=== PATIENT | female | born 1975 | race American Indian/Alaskan Native ===

== ENCOUNTER 2017-12-18 21:59 | Emergency (ER) | payer OTHER, SELFPAY ==
[2017-12-18 22:11] VITALS: BP 102/67; PULSE 91; RESP 16; TEMP 36.5; O2SAT 97; BMI 33.7
[2017-12-18 23:21] VITALS: BP 102/67; PULSE 91; RESP 16; TEMP 36.5; O2SAT 97; BMI 33.7
--- NOTE | 2017-12-19 01:58 | ED_ITS ---
HPI - Dizziness General Chief Complaint: Dizziness Stated Complaint: Dizzy Time Seen by Provider: 12/19/17 01:44 Source: patient Mode of arrival: ambulatory Limitations: no limitations History of Present Illness HPI Narrative: This is a 42-year-old female who comes to the emergency department with complaint of dizziness. Patient states she was driving her car when she felt lightheaded like she might pass out. She did not have tunnel vision. She did not have any loss of consciousness. She just felt dizzy sort of like the room was moving. Um a resolved on its own. She did have a little bit of a headache earlier today it has resolved since arriving to be evaluated. Patient has had an upper respiratory infection with nasal congestion. She denies any sinus tenderness. She has felt that her ears were full or like she was under water. She had subjective fevers on Saturday and Saturday. She has not had any vision changes. No nausea, no vomiting or other GI issues. She did take Sudafed a couple hours prior to this event. Patient does take lisinopril for renal protection secondary to diet controlled diabetes. MD complaint: dizziness Related Data Home Medications Medication Instructions Recorded Confirmed lisinopril #0 06/08/17 Previous Rx's Medication Instructions Recorded fluticasone [Flonase Allergy 1 spray NASAL BID PRN #9.9 gram 12/19/17 Relief] loratadine [Claritin] 10 mg PO DAILY PRN #10 tab 12/19/17 Allergies Allergy/AdvReac Type Severity Reaction Status Date / Time acetaminophen [From Vicodin] AdvReac Verified 12/18/17 22:11 hydrocodone [From Vicodin] AdvReac Verified 12/18/17 22:11 No Known Allergies AdvReac Uncoded 12/18/17 22:11 Review of Systems Review of Systems All systems reviewed & are unremarkable except as noted in HPI and below Constitutional Reports fever(s) (Subjective) and Reports headache(s) (Today, now resolved) ENT Ears, Nose, Mouth, and Throat: Reports dizziness, Denies ear discharge, Reports otalgia (Feeling full), Denies facial pain, Reports headache(s) (Today, now resolved), Denies hoarseness, Reports nasal congestion, Reports nasal discharge , Denies sinus pain, Denies sinus pressure and Denies sore throat Cardiovascular Denies irregular heart rhythm, Reports lightheadedness, Denies palpitations and Denies orthopnea Respiratory Reports cough, Reports excessive phlegm production (White/yellow) and Denies wheezing Gastrointestinal Gastrointestinal: Denies abdominal pain, Denies nausea and Denies vomiting Genitourinary Denies urinary frequency and Denies dysuria Integumentary/Breasts Denies rash Neurologic Reports dizziness and Reports headache(s) (Today, now resolved) Endocrine Denies palpitations Allergic/Immunologic Denies wheezing PFSH Medical History Diabetes mellitus type 2, diet-controlled (Acute) Social History Smoking Status: Current some day smoker Exam Narrative Exam Narrative: GEN: well nourished, well appearing female, alert and oriented x 3, patient appears to be in no acute distress. HEENT: Atraumatic, pupils are equal round reactive to light, extraocular movements are intact, nares bilateral nasal congestion patient is slightly hoarse,, TMs are clear, retracted bilaterally with small amount of fluid. Throat is clear without any exudates, erythema, tonsillar enlargement or uvular deviation, mild cervical lymphadenopathy bilaterally. HEART: Regular rate and rhythm without murmur, clicks, rubs. LUNGS:Lungs clear to auscultation, no wheezes, rales, crackles, chest moves symmetrically ABD:bowel sounds normal, soft, non-tender, no guarding, rebound, rigidity, no masses noted, no hepatosplenomegaly :No CVA tenderness MSCL: Non-tender, no muscle atrophy, muscles strength 5/5 upper and lower extremities, full range of motion, normal gait. NEURO:CN 2-12 intact, sensation normal. Initial Vital Signs Initial Vital Signs: Vital Signs Temperature 97.7 F 12/18/17 22:11 Pulse Rate 91 H 12/18/17 22:11 Respiratory Rate 16 12/18/17 22:11 Blood Pressure 102/67 12/18/17 22:11 Pulse Oximetry 97 12/18/17 22:11 Course Orders Ordered: ED Orders 12/18/17 23:20 EKG-12 Lead Stat Vital Signs - 8 hr 12/18/17 22:11 12/18/17 23:21 12/19/17 02:03 Temperature 97.7 F 97.7 F Pulse Rate 91 H 91 H 72 Respiratory Rate 16 16 Blood Pressure 102/67 102/67 106/50 L Pulse Oximetry 97 97 MDM - Dizziness ECG Data Attestation: I personally reviewed and interpreted this ECG as follows: Interpretation: Sinus rhythm with a rate is 64, ID [id number], QRS 90 QTC of 419. MDM Narrative Medical decision making narrative: Patient's EKG shows no acute changes. Suspect her symptoms are more related to her recent respiratory infection, pressure issues with her ears as well as the recent Sudafed. We did discuss getting lab work. Patient referred to return time she defers any lab work. Discharge Plan Departure Patient Disposition: Home Clinical Impression: Dizziness, URI (upper respiratory infection) Discharge Date/Time: 12/19/17 02:04 Interventions: ED Discharge Assessment Last Done: 12/19/17 02:03 Instructions: DI for Dizziness-Nonvertigo Activity Restrictions/Additional Instructions: Follow-up with primary care if you do not have complete resolution of her symptoms in the next 3-5 days. Use Flonase 1-2 sprays in both nostrils twice daily until symptoms are resolved. You may take loratadine for Claritin once daily for symptoms. Return for recurrent or worsening symptoms, passing out, fevers greater than 100.4 F, new chest pain or shortness of breath, persistent vomiting, sudden severe headaches or vision changes or new weakness or numbness. Prescriptions: New fluticasone [Flonase Allergy Relief] 50 mcg/actuation spray,suspension 1 spray NASAL BID PRN (Reason: nasal congestion) Qty: 9.9 RF: 0 loratadine [Claritin] 10 mg tablet 10 mg PO DAILY PRN (Reason: allergy symptoms) Qty: 10 RF: 0 No Action lisinopril 2.5 mg Tablet Qty: 0 RF: 0
[2017-12-19 02:03] VITALS: BP 106/50; PULSE 72
== END 2017-12-19 02:04 | disposition home or self-care (01) ==
PROVIDERS: Emergency Provider Emergency Medicine
DX: J06.9 Acute upper respiratory infection, unspecified (principal); R42 Dizziness and giddiness
CPT/HCPCS: 93005; 93010; 99282; 99283

== ENCOUNTER 2018-04-10 01:59 | Emergency (ER) | payer OTHER, SELFPAY ==
[2018-04-10 02:05] VITALS: BMI 34.3
[2018-04-10] MEDS: SODIUM CHLORIDE 0.9% 1,000 ML 1000 ML IV ×2 (02:11→03:30)
--- NOTE | 2018-04-10 02:12 | DI.RAD.S_ITS ---
PROCEDURE: XR ACUTE ABDOMEN SERIES INDICATIONS: right upper Abdominal pain TECHNIQUE: One view chest and two views of the abdomen were acquired. COMPARISON: None. FINDINGS: Surgical changes and devices: None. Chest: Lungs are clear. Heart size is normal. No pleural effusions. No pneumoperitoneum. Abdomen: Scattered colonic gas are noted. There is relative paucity of small bowel gas. No suspicious calcifications. Visualized solid organ contours appear normal. Bones: No suspicious bony lesions. IMPRESSION: Nonspecific bowel gas pattern. Dictated by: Martina Kunz M.D. on 04/10/2018 at 9:03 Approved by: Martina Kunz M.D. on 04/10/2018 at 9:03
[2018-04-10 02:22] VITALS: BP 115/78; PULSE 104; RESP 18; TEMP 37.1; O2SAT 97
[2018-04-10] MEDS: PANTOPRAZOLE 40 MG VIAL IV (02:27)
[2018-04-10] MEDS: ONDANSETRON 4 MG/2 ML INJ IV (02:27)
--- NOTE | 2018-04-10 02:29 | ED.ABDPAIN ---
HPI - Abdominal Pain General Chief Complaint: Abdominal Pain Stated Complaint: stomach pain/diarrhea/vomiting Time Seen by Provider: 04/10/18 02:04 Source: patient and family Mode of arrival: ambulatory Limitations: no limitations History of Present Illness HPI narrative: 43-year-old female, nonsmoker presents with her and a chief complaint of 1 hr of nausea, vomiting and diarrhea. She developed gradually increasing right-sided abdominal pain that built to a maximum intensity at which point she became sweaty and clammy. Her symptoms greatly improved after the 1 episode of both vomiting and diarrhea. She has had 1 in only 1 episode of both vomiting and diarrhea. She denies recent travel. She denies recent antibiotics. She denies exposure to ill persons or bad food. She has had no fever or chills. She denies any blood in her stool. She is currently asymptomatic. She denies runny nose, sore throat or cough. She has had no chest pain or shortness of breath MD complaint: abdominal pain Onset (ago): hour(s) Pain Consistency: now resolved Location: R flank Severity: moderate Quality: cramping Migration to: no migration Relieving factors: bowel movement and vomiting Exacerbating factors: nothing Associated symptoms: nausea, vomiting and diarrhea Related Data Home Medications Medication Instructions Recorded Confirmed lisinopril #0 06/08/17 Previous Rx's Medication Instructions Recorded fluticasone [Flonase Allergy 1 spray NASAL BID PRN #9.9 gram 12/19/17 Relief] loratadine [Claritin] 10 mg PO DAILY PRN #10 tab 12/19/17 hyoscyamine sulfate 0.125 mg PO BID-QID PRN #10 tab 04/10/18 ondansetron 4 mg PO TID-QID PRN #10 tab 04/10/18 Allergies Allergy/AdvReac Type Severity Reaction Status Date / Time acetaminophen [From Vicodin] AdvReac Verified 12/18/17 22:11 hydrocodone [From Vicodin] AdvReac Verified 12/18/17 22:11 No Known Allergies AdvReac Uncoded 12/18/17 22:11 Review of Systems Constitutional Denies chills, Denies fever(s), Denies lethargy and Denies weakness Eyes Denies change in vision, Denies eye discharge, Denies irritation and Denies loss of vision ENT Ears, Nose, Mouth, and Throat: Denies change in voice, Denies neck pain and Denies sore throat Cardiovascular Denies chest pain, Denies irregular heart rhythm, Denies lightheadedness, Denies palpitations, Denies dyspnea, Denies dyspnea on exertion and Denies orthopnea Respiratory Denies cough, Denies dyspnea, Denies dyspnea on exertion and Denies wheezing Gastrointestinal Gastrointestinal: Reports abdominal pain, Denies change in bowel habits, Reports diarrhea, Reports nausea and Reports vomiting Genitourinary Denies hematuria, Denies flank pain, Denies urinary incontinence and Denies urinary urgency Musculoskeletal Denies neck pain Integumentary/Breasts Denies pruritus, Denies erythema, Denies rash and Denies wounds Neurologic Denies confusion, Denies loss of vision and Denies weakness Psychiatric Denies anxiety, Denies confusion, Denies depression, Denies homicidal ideation and Denies suicidal ideation Endocrine Denies palpitations Hematologic/Lymphatic Denies easy bruising Allergic/Immunologic Denies wheezing [facility] Medical History Diabetes mellitus type 2, diet-controlled (Acute) Social History Smoking Status: Current some day smoker Social History Smoking Status: Current some day smoker Exam Narrative Exam Narrative: GENERAL: 43-year-old female, resting comfortably, no obvious current distress HEAD: Atraumatic. Normocephalic. No temporal or scalp tenderness. EYES: Pupils equal round and reactive. Extraocular motions intact. No scleral icterus. No injection or drainage. ENT: Nose without bleeding, purulent drainage or septal hematoma. Throat without erythema, tonsillar hypertrophy or exudate. Uvula midline. Airway patent. NECK: Trachea midline. No JVD or lymphadenopathy. Supple, nontender, no meningeal signs. CARDIOVASCULAR: Regular rate and rhythm without murmurs, gallops, or rubs. RESPIRATORY: Clear to auscultation. Breath sounds equal bilaterally. No wheezes, rales, or rhonchi. GASTROINTESTINAL: Abdomen soft, mild tenderness right abdomen, nondistended. No hepato-splenomegaly, or palpable masses. No guarding. EXTREMITIES: No clubbing, cyanosis, or edema. No joint tenderness, effusion, or edema noted. BACK: Nontender without deformity or crepitance. No flank tenderness. NEURO: AOx3. SKIN: No rash or erythema. Initial Vital Signs Initial Vital Signs: Vital Signs Temperature 98.7 F 04/10/18 02:22 Pulse Rate 104 H 04/10/18 02:22 Respiratory Rate 18 04/10/18 02:22 Blood Pressure 115/78 04/10/18 02:22 Pulse Oximetry 97 04/10/18 02:22 Course Orders Ordered: ED Orders 04/10/18 02:12 XR acute abdomen series Stat 04/10/18 02:20 Complete Blood Count AUTO DIFF Stat Comprehensive Metabolic Panel Stat Lipase Stat 04/10/18 03:20 GI Panel (Film Array) Stat Urine Microscopic Stat Discontinued Medications Sodium Chloride (Normal Saline 0.9%) 500 mls @ 1,000 mls/hr IV BOLUS ONE Stop: 04/10/18 02:40 Last Admin: 04/10/18 03:55 Dose: Not Given Sodium Chloride (Normal Saline 0.9%) 1,000 mls @ 1,000 mls/hr IV BOLUS ONE Stop: 04/10/18 03:10 Last Infusion: 04/10/18 03:15 Dose: 1,000 mls/hr Admin: 04/10/18 02:11 Dose: 1,000 mls/hr Sodium Chloride (Normal Saline 0.9%) 1,000 mls @ 1,000 mls/hr IV BOLUS ONE Stop: 04/10/18 04:29 Last Infusion: 04/10/18 04:14 Dose: 1,000 mls/hr Admin: 04/10/18 03:30 Dose: 1,000 mls/hr Ondansetron HCl (Zofran) 4 mg IV NOW ONE Stop: 04/10/18 02:12 Last Admin: 04/10/18 02:27 Dose: 4 mg Pantoprazole Sodium (Protonix) 40 mg IV NOW ONE Stop: 04/10/18 02:12 Last Admin: 04/10/18 02:27 Dose: 40 mg Reevaluation(s) Reevaluation #1: Patient just produced a liquidy stool and feels tremendous relief in her abdominal discomfort, this is now the 2nd time the bowel movement has improved her symptoms tremendously. Time: 03:14 Vital Signs - 8 hr 04/10/18 02:22 04/10/18 04:19 Temperature 98.7 F Pulse Rate 104 H 83 Respiratory Rate 18 15 Blood Pressure 114/70 Blood Pressure [Right Wrist] 115/78 Pulse Oximetry 97 97 MDM - Abdominal Pain Medical Records Attestation: I reviewed the patient's medical records. Lab Data Attestation: I reviewed the patient's lab results. Result diagrams: 04/10/18 02:20 04/10/18 02:20 Lab Results 04/10/18 04/10/18 04/10/18 Range/Units 02:20 02:20 03:20 WBC 16.6 H (4.5-11.0) X10^3/uL RBC 5.37 H (4.0-5.2) X10^6/uL Hgb 15.4 (12.0-16.0) g/dL Hct 44.5 (36-46) % MCV 82.9 (80-100) fL MCH 28.6 (26-34) PG MCHC 34.6 (30-36) % RDW 13.3 (11.6-14.8) % Plt Count 392 (150-400) X10^3/uL Neut % (Auto) 63.4 (50-75) % Lymph % (Auto) 27.8 (25-40) % [place] % (Auto) 7.1 (3-14) % Eos % (Auto) 1.2 L (2-4) % Baso % (Auto) 0.5 (0-2) % Neut # (Auto) 73934 H (1411-0747) /uL Lymph # (Auto) 4600 H (4820-3712) /uL [place] # (Auto) 1200 H (0-900) /uL Eos # (Auto) 200 (0-450) /uL Baso # (Auto) 100 (0-100) /uL Sodium 137 (137-145) mmol/L Potassium 3.9 (3.4-5.1) mmol/L Chloride 101 (98-107) mmol/L Carbon Dioxide 24 (22-32) mmol/L BUN 15 (7-17) mg/dL Creatinine 0.70 (0.52-1.04) mg/dL Estimated GFR > 60.0 (>60) mL/min BUN/Creatinine Ratio 21.4 (6-22) Glucose 180 H (70-100) mg/dL Calcium 9.3 (8.4-10.2) mg/dL Total Bilirubin 0.3 (0.2-1.3) mg/dL AST 22 (14-36) IU/L ALT 26 (9-52) IU/L Alkaline Phosphatase 102 (38-126) U/L Total Protein 8.0 (6.3-8.2) g/dL Albumin 4.6 (3.5-5.0) g/dL Globulin 3.4 (1.7-4.1) g/dL Albumin/Globulin Ratio 1.4 (1.0-2.8) Lipase 200 (23-300) U/L Urine RBC 0-1/hpf (0-5/HPF) Urine WBC None seen (0-5/HPF) Ur Squamous Epith Cells 1-5 /hpf Calcium Oxalate Crystal Few H (None) Urine Bacteria Few (2-10) H (None) Urine Mucus 1+ H (Negative) Ur Culture Indicated? Cult not indicated Point of care testing: Urine Dip Bedside Urine Glucose 250 mg/dl Bedside Urine Bilirubin - Negative Bedside Urine Ketone - Negative Urine Specific [place] 1.030 Bedside Urine Occult Blood +/- Bedside Urine pH 6.0 Bedside Urine Protein +/- 15 Bedside Urine Urobilinogen - Negative Bedside Urine Nitrite - Negative Bedside Urine Leukocytes - Negative Esterase Imaging Data Abdominal x-ray: My impression: Nonspecific bowel gas pattern, nonobstructive MDM Narrative Medical decision making narrative: Multiple etiologies for patient's symptoms considered including: [Appendicitis versus kidney stone versus enteritis vs gastroenteritis versus bowel obstruction versus other] Patient's symptoms improved or duration of stay with above-stated therapies. Findings and discharge diagnosis discussed with patient/family followed by verbalization of understanding Return precautions discussed with patient/family whom verbalize understanding. Discharge Plan Departure Patient Disposition: Home Clinical Impression: Abdominal pain, Enteritis Discharge Date/Time: 04/10/18 04:17 Interventions: ED Discharge Assessment Last Done: 04/10/18 04:19 Instructions: DI for Viral Gastroenteritis -- Adult Activity Restrictions/Additional Instructions: 1. Drink plenty of fluids with frequent small sips. 2. For the next 24 hours a clear liquid diet is advised. After that please employ a brat diet which would include bananas, rice, apples, toast. 3. Please take medications as directed. 4. Please follow-up with your doctor in the next 1-2 days. Call the office for an appointment. 5. Please return to the emergency Department for any worsening or persistent symptoms, such as increasing pain or fever. Prescriptions: New ondansetron 4 mg tablet,disintegrating 4 mg PO TID-QID PRN (Reason: nausea and vomiting) Qty: 10 RF: 0 hyoscyamine sulfate 0.125 mg tablet 0.125 mg PO BID-QID PRN (Reason: dyspepsia) Qty: 10 RF: 0 No Action lisinopril 2.5 mg Tablet Qty: 0 RF: 0 fluticasone [Flonase Allergy Relief] 50 mcg/actuation spray,suspension 1 spray NASAL BID PRN (Reason: nasal congestion) Qty: 9.9 RF: 0 loratadine [Claritin] 10 mg tablet 10 mg PO DAILY PRN (Reason: allergy symptoms) Qty: 10 RF: 0
[2018-04-10 02:36] LABS: Add Manual Diff / Slide Review NO; Basophils Absolute Auto 100 /uL (0-100); Basophils Percent Auto 0.5 % (0-2); Eosinophils Absolute Auto 200 /uL (0-450); Eosinophils Percent Auto 1.2 % (2-4); Hematocrit 44.5 % (36-46); Hemoglobin 15.4 g/dL (12.0-16.0); Lymphocytes Absolute Auto 4600 /uL (1100-4500); Lymphocytes Percent Auto 27.8 % (25-40); Mean Corpuscular HGB Conc 34.6 % (30-36); Mean Corpuscular Hemoglobin 28.6 PG (26-34); Mean Corpuscular Volume 82.9 fL (80-100); Monocytes Absolute Auto 1200 /uL (0-900); Monocytes Percent Auto 7.1 % (3-14); Neutrophils Absolute Auto 10500 /uL (1500-7000); Neutrophils Percent Auto 63.4 % (50-75); Platelet Count 392 X10^3/uL (150-400); Red Blood Cell Count 5.37 X10^6/uL (4.0-5.2); Red Cell Distribution Width 13.3 % (11.6-14.8); White Blood Cell Count 16.6 X10^3/uL (4.5-11.0)
[2018-04-10 02:42] LABS: Alanine Aminotransferase 26 IU/L (9-52); Albumin 4.6 g/dL (3.5-5.0); Albumin Globulin Ratio 1.4 (1.0-2.8); Alkaline Phosphatase 102 U/L (38-126); Aspartate Aminotransferase 22 IU/L (14-36); BUN Creatinine Ratio 21.4 (6-22); Bilirubin Total 0.3 mg/dL (0.2-1.3); Blood Urea Nitrogen 15 mg/dL (7-17); Calcium 9.3 mg/dL (8.4-10.2); Carbon Dioxide 24 mmol/L (22-32); Chloride 101 mmol/L (98-107); Estimated Glomerular Filt Rate > 60.0 mL/min (>60); Globulin 3.4 g/dL (1.7-4.1); Glucose 180 mg/dL (70-100); HEMOLYSIS < 15 (0-50); Lipase 200 U/L (23-300); Potassium 3.9 mmol/L (3.4-5.1); Sodium 137 mmol/L (137-145)
[2018-04-10 03:52] LABS: WBC Urine None Seen (0-5/HPF)
[2018-04-10 03:53] LABS: RBC Urine 0-1/HPF (0-5/HPF); Squamous Epithelial Cell Urine 1-5 /HPF
[2018-04-10 03:54] LABS: Bacteria Urine Few (2-10); Calcium Oxalate Crystals Urine Few; Culture Indicated Urine Cult Not Indicated; Mucus Urine 1+ (Negative)
[2018-04-10 04:19] VITALS: BP 114/70; PULSE 83; RESP 15; O2SAT 97
[2018-04-10 04:47] LABS: Adenovirus F 40/41 Not Detected (Not Detect); Astrovirus Not Detected (Not Detect); Campylobacter Not Detected (Not Detect); Clostridium difficile toxin AB Not Detected (Not Detect); Cryptosporidium Not Detected (Not Detect); Cyclospora cayetanensis Not Detected (Not Detect); Entamoeba histolytica Not Detected (Not Detect); Enteroaggregative E.coli Not Detected (Not Detect); Enteropathogenic E.coli Not Detected (Not Detect); Enterotoxigenic E.coli It/st Not Detected (Not Detect); Giardia lamblia Not Detected (Not Detect); Norovirus GI/GII Not Detected (Not Detect); Plesiomonsa shigelloides Not Detected (Not Detect); Rotavirus A Not Detected (Not Detect); Salmonella Not Detected (Not Detect); Shiga-like toxin-prod E.coli Not Detected (Not Detect); Shigella/Enteroinvasive E.coli Not Detected (Not Detect); Vibrio Not Detected (Not Detect); Vibrio cholerae Not Detected (Not Detect); Yersinia enterocolitica Not Detected (Not Detect)
== END 2018-04-10 04:17 | disposition home or self-care (01) ==
PROVIDERS: Emergency Provider Emergency Medicine
DX: K52.9 Noninfective gastroenteritis and colitis, unspecified (principal)
CPT/HCPCS: 36415; 36591; 74022; 80053; 81003; 81015; 83690; 85025; 87507; 96361; 96374; 96375; 99283; 99284; C9113; J2405

== ENCOUNTER → 2018-08-24 13:15 | Outpatient (CLI) | payer OTHER, SELFPAY | PROVIDERS: Visit Provider Physician Assistant | DX: N39.0 Urinary tract infection, site not specified (principal); R31.9 Hematuria, unspecified | CPT/HCPCS: 87077; 87086; 87186 ==

== ENCOUNTER 2019-04-30 20:20 | Emergency (ER) | payer OTHER, SELFPAY ==
[2019-04-30 20:29] VITALS: BP 114/56; PULSE 80; RESP 18; TEMP 36.6; O2SAT 100
--- NOTE | 2019-04-30 20:48 | ED_ITS ---
HPI - General Adult General Chief complaint: Upper Respiratory Symptoms Stated complaint: sore throat, cold symptoms Time Seen by Provider: 04/30/19 20:40 Source: patient Mode of arrival: Ambulatory Limitations: no limitations History of Present Illness HPI narrative: Otherwise healthy 44-year-old female here for evaluation of several weeks of a cough and nasal congestion. She has been taking her allergy medications. She is here with her son who she thinks and strep throat. She decided to get checked out to make sure that she does not have bronchitis. Related Data Home Medications Medication Instructions Recorded Confirmed lisinopril #0 06/08/17 08/24/18 cetirizine 10 mg capsule 10 mg PO DAILY 08/24/18 08/24/18 Previous Rx's Medication Instructions Recorded fluticasone propionate [Flonase 1 spray NASAL BID PRN #9.9 gram 12/19/17 Allergy Relief] nitrofurantoin 100 mg PO BID #14 cap 08/24/18 monohydrate/macrocrystals 100 mg capsule prednisone 40 mg PO DAILY 4 Days #8 tab 04/30/19 Allergies Allergy/AdvReac Type Severity Reaction Status Date / Time acetaminophen [From Vicodin] AdvReac Verified 08/24/18 09:24 hydrocodone [From Vicodin] AdvReac Verified 08/24/18 09:24 Review of Systems Constitutional Constitutional: Denies fever(s) ENT Ears, Nose, Mouth, and Throat: Denies neck pain and Reports sinus pressure Respiratory Respiratory: Reports cough Musculoskeletal Musculoskeletal: Denies arthralgias and Denies neck pain Integumentary/Breasts Skin/Breast: Denies rash Patient History Medical History Diabetes mellitus type 2, diet-controlled (Acute) Social History Smoking Status: Current every day smoker Smoking Status: Current every day smoker alcohol intake frequency: holidays/special occasions only Substance Use Type: does not use Exam Initial Vital Signs Initial Vital Signs: Vital Signs Temperature 98 F 04/30/19 20:29 Pulse Rate 80 04/30/19 20:29 Respiratory Rate 18 04/30/19 20:29 Blood Pressure 114/56 L 04/30/19 20:29 Pulse Oximetry 100 04/30/19 20:29 Const General: cooperative and comfortable Limitations: mental status not altered HENCA Head: normal to inspection and normocephalic Ears: TM's normal bilaterally Mouth: oral mucosae normal Resp Effort & Inspection: normal respiratory effort Auscultation: clear to auscultation bilaterally Cardio Rate: regular rate Rhythm: regular rhythm Skin Lesions: no lesions Rashes: no rashes Neuro General: alert and awake Cognition: normal cognition Speech: speech normal Extrem General: capillary refill normal Psych Appearance: grossly normal and well kempt Course Orders Ordered: Discontinued Medications Prednisone (Deltasone) 20 mg PO NOW ONE Stop: 04/30/19 21:00 Last Admin: 04/30/19 21:19 Dose: 20 mg Documented by: RILEY Vital Signs Vital signs: Vital Signs - 8 hr 04/30/19 20:29 04/30/19 21:45 Temperature 98 F Pulse Rate 80 87 Respiratory Rate 18 15 Blood Pressure 114/56 L 128/61 Pulse Oximetry 100 100 Medical Decision Making MDM Narrative Medical decision making narrative: Normal exam, no indication for antibiotics, low suspicion for strep throat, will send her home on a short course of steroids. She is going to continue to take her allergy medications. Will follow up with her primary provider. She was given return precautions and follow-up instructions. She expressed understanding and agreement Discharge Plan Departure Patient Disposition: Home Clinical Impression: Upper respiratory infection Qualifiers: URI type: unspecified viral URI Qualified Code(s): J06.9 - Acute upper respiratory infection, unspecified Discharge Date/Time: 04/30/19 21:45 Instructions: DI for Viral Upper Respiratory Infection -- Adult Activity Restrictions/Additional Instructions: Recommend that you continue with her allergy medication. You can had Flonase to the Zyrtec you are currently taking. Take the steroids as directed. Contact your primary provider for follow-up. Your prescription was electronically transmitted to [facility]. Prescriptions: New prednisone 20 mg tablet 40 mg PO DAILY 4 Days Qty: 8 RF: 0 No Action Zyrtec 10 mg capsule 10 mg PO DAILY RF: 0 nitrofurantoin monohyd/m-cryst [Macrobid] 100 mg capsule 100 mg PO BID Qty: 14 RF: 0 lisinopril 2.5 mg Tablet Qty: 0 RF: 0 fluticasone propionate [Flonase Allergy Relief] 50 mcg/actuation spray,suspension 1 spray NASAL BID PRN (Reason: nasal congestion) Qty: 9.9 RF: 0 Referrals: Estefany Carroll MD [Primary Care Provider] -
[2019-04-30] MEDS: predniSONE 20 MG TABLET PO (21:19)
[2019-04-30 21:45] VITALS: BP 128/61; PULSE 87; RESP 15; O2SAT 100
== END 2019-04-30 21:45 | disposition home or self-care (01) ==
PROVIDERS: Emergency Provider Emergency Medicine; PCP Family Medicine
DX: J06.9 Acute upper respiratory infection, unspecified (principal)
CPT/HCPCS: 99283

== ENCOUNTER 2019-09-06 01:21 | Emergency (ER) | payer OTHER, SELFPAY ==
[2019-09-06 01:39] VITALS: BP 134/62; PULSE 86; RESP 20; TEMP 36.3; O2SAT 100; BMI 33.5
[2019-09-06] MEDS: MECLIZINE HCL 12.5 MG TABLET 25 MG PO (01:55)
--- NOTE | 2019-09-06 02:04 | ED.DIZZY ---
HPI - Dizziness General Chief Complaint: Dizziness Stated Complaint: dizzy spells 5 days Time Seen by Provider: 09/06/19 01:25 Source: patient Mode of arrival: Ambulatory Limitations: no limitations History of Present Illness HPI Narrative: Daily smoker with history of hypertension presents with a chief complaint of. She states that she feels as if the room is spinning, particularly when she turns her head or sits up from laying down. She admits to some runny nose and sneezing and has had a history of seasonal allergies. She denies any fever chills. She denies blurred or double vision. She denies any focal neurologic findings such as numbness, tingling or weakness. She denies any recent injuries. She saw her PCP a few days ago and was told that she had some fluid behind her ear and was given a nasal spray, decongestant and encouraged to take antihistamines twice daily. She may feel little bit better but was worried something else might be going on. MD complaint: dizziness Onset (ago): day(s) Timing: sudden onset Description: sense of movement and room spinning History of similar episodes: Yes History of trauma: No Severity: moderate Relieving factors: remaining still Exacerbating factors: movement and position Associated symptoms: other Related Data Home Medications Medication Instructions Recorded Confirmed cetirizine 10 mg PO DAILY 09/06/19 09/06/19 losartan 50 mg PO DAILY 09/06/19 09/06/19 pseudoephedrine HCl [Sudafed 12 120 mg PO Q12H 09/06/19 09/06/19 Hour] simvastatin 10 mg PO DAILY 09/06/19 09/06/19 Previous Rx's Medication Instructions Recorded fluticasone propionate [Flonase 1 spray NASAL BID PRN #9.9 gram 12/19/17 Allergy Relief] meclizine 25 mg PO TID PRN #10 tab 09/06/19 Allergies Allergy/AdvReac Type Severity Reaction Status Date / Time acetaminophen [From Vicodin] AdvReac Verified 08/24/18 09:24 amoxicillin [From Augmentin] AdvReac Verified 09/06/19 01:39 clavulanic acid AdvReac Verified 09/06/19 01:39 [From Augmentin] hydrocodone [From Vicodin] AdvReac Verified 08/24/18 09:24 Review of Systems Constitutional Constitutional: Denies chills, Denies fatigue, Denies fever(s), Denies frequent falls, Denies lethargy and Denies weakness Eyes Eyes: Denies change in vision, Denies eye discharge, Denies irritation and Denies loss of vision ENT Ears, Nose, Mouth, and Throat: Denies change in voice, Reports dizziness, Reports nasal congestion, Denies neck pain, Denies sore throat and Denies throat swelling Comments: Left ear pain Cardiovascular Cardiovascular: Denies chest pain, Denies irregular heart rhythm, Denies lightheadedness, Denies palpitations, Denies dyspnea, Denies dyspnea on exertion and Denies orthopnea Respiratory Respiratory: Denies cough, Denies dyspnea, Denies dyspnea on exertion and Denies wheezing Gastrointestinal Gastrointestinal: Denies abdominal pain, Denies change in bowel habits, Denies diarrhea, Denies nausea and Denies vomiting Musculoskeletal Musculoskeletal: Denies neck pain and Denies numbness Integumentary/Breasts Skin/Breast: Denies pruritus, Denies erythema, Denies rash and Denies wounds Neurologic Neurologic: Denies behavioral changes, Denies confusion, Reports dizziness, Denies frequent falls, Denies loss of vision, Denies numbness and Denies weakness Psychiatric Psychiatric: Denies anxiety, Denies behavioral changes, Denies confusion, Denies depression, Denies homicidal ideation and Denies suicidal ideation Endocrine Endocrine: Denies fatigue, Denies flushing and Denies palpitations Hematologic/Lymphatic Hematologic/Lymphatic: Denies easy bruising Allergic/Immunologic Allergic/Immunologic: Denies urticaria, Denies throat swelling and Denies wheezing Patient History Medical History Diabetes mellitus type 2, diet-controlled (Acute) Social History Smoking Status: Current every day smoker Smoking Status: Current every day smoker alcohol intake frequency: holidays/special occasions only Substance Use Type: does not use Exam Narrative Exam Narrative: GENERAL: [44] year old patient appears stated age. Well-nourished, well-developed patient, in mild distress. HEAD: Atraumatic. Normocephalic. EYES: Pupils equal round and reactive. Extraocular motions intact. No scleral icterus. No injection or drainage. ENT: Nose without bleeding, purulent drainage. Clear postnasal drip, no pharyngeal erythema or tender lymphadenopathy. Clear effusion behind left tympanic membrane without opacification, loss of landmarks, bulging or erythema. NECK: Trachea midline. Non tender CARDIOVASCULAR: Regular rate and rhythm without murmurs, gallops, or rubs. RESPIRATORY: Clear to auscultation. Breath sounds equal bilaterally. No wheezes, rales, or rhonchi. GASTROINTESTINAL: Abdomen soft, non-tender, nondistended. EXTREMITIES: No edema or joint tenderness. BACK: Nontender without deformity or crepitance. No flank tenderness. NEURO: AOx3. SKIN: No rash or erythema of visible areas Initial Vital Signs Initial Vital Signs: Vital Signs Temperature 97.3 F L 09/06/19 01:39 Pulse Rate 86 09/06/19 01:39 Respiratory Rate 20 09/06/19 01:39 Blood Pressure 134/62 09/06/19 01:39 Pulse Oximetry 100 09/06/19 01:39 Course Course Course Narrative: Patient has mild nystagmus when turning her head left, fast which to the left. Symptoms improved after 30-60 seconds. The symptoms are reproducible and in the absence of any focal neurologic findings. Stroke, electrolyte abnormality, cardiac arrhythmia considered but thought less likely given history and physical exam. Orders Ordered: ED Orders 09/06/19 01:31 EKG-12 Lead Routine 09/06/19 02:10 Complete Blood Count AUTO DIFF Stat Comprehensive Metabolic Panel Stat Troponin & CK Cardiac Panel Stat Discontinued Medications Meclizine HCl (Antivert) 25 mg PO NOW ONE Stop: 09/06/19 01:38 Last Admin: 09/06/19 01:55 Dose: 25 mg Documented by: JACKLYN Vital Signs Vital signs: Vital Signs - 8 hr 09/06/19 01:39 09/06/19 03:09 Temperature 97.3 F L Pulse Rate 86 81 Respiratory Rate 20 18 Blood Pressure 134/62 Blood Pressure [Right Arm] 120/58 L Pulse Oximetry 100 98 MDM - Dizziness Lab Data Result diagrams: 09/06/19 02:10 09/06/19 02:10 Labs: Lab Results 09/06/19 09/06/19 Range/Units 02:10 02:10 WBC 11.8 H (4.5-11.0) X10^3/uL RBC 4.72 (4.0-5.2) X10^6/uL Hgb 13.8 (12.0-16.0) g/dL Hct 39.8 (36-46) % MCV 84.4 (80-100) fL MCH 29.3 (26-34) PG MCHC 34.8 (30-36) % RDW 12.6 (11.6-14.8) % Plt Count 361 (150-400) X10^3/uL Neut % (Auto) 51.2 (50-75) % Lymph % (Auto) 39.2 (25-40) % Becker % (Auto) 6.7 (3-14) % Eos % (Auto) 2.0 (2-4) % Baso % (Auto) 0.9 (0-2) % Neut # (Auto) 6000 (9839-7019) /uL Lymph # (Auto) 4600 H (1981-9321) /uL Becker # (Auto) 800 (0-900) /uL Eos # (Auto) 200 (0-450) /uL Baso # (Auto) 100 (0-100) /uL Sodium 135 L (137-145) mmol/L Potassium 4.3 (3.4-5.1) mmol/L Chloride 104 (98-107) mmol/L Carbon Dioxide 23 (22-32) mmol/L BUN 16 (7-17) mg/dL Creatinine 0.82 (0.52-1.04) mg/dL Estimated GFR > 60.0 (>60) mL/min BUN/Creatinine Ratio 19.5 (6-22) Glucose 228 H (70-100) mg/dL Calcium 9.6 (8.4-10.2) mg/dL Total Bilirubin 0.2 (0.2-1.3) mg/dL AST 24 (14-36) IU/L ALT 17 (<35) IU/L Alkaline Phosphatase 111 (38-126) U/L Total Creatine Kinase 147 H (30-135) U/L CK-MB (CK-2) 1.85 (<2.37) ng/mL CK-MB (CK-2) Rel Index 1.3 L (1.5-5.0) % Troponin I < 0.012 (0.01-0.034) ng/mL Total Protein 6.9 (6.3-8.2) g/dL Albumin 4.0 (3.5-5.0) g/dL Globulin 2.9 (1.7-4.1) g/dL Albumin/Globulin Ratio 1.4 (1.0-2.8) ECG Data Attestation: I personally reviewed and interpreted this ECG as follows: Prior ECG tracings: not available for review Interpretation: EKG is normal sinus rhythm rate [80 ] and free of any signs of ischemia or ectopy. No ST segmental elevation or depression. No T wave inversions Discharge Plan Departure Patient Disposition: Home Clinical Impression: Dizziness Discharge Date/Time: 09/06/19 03:16 Instructions: DI for Vertigo Activity Restrictions/Additional Instructions: *You have been diagnosed with [dizziness, likely due to fluid behind your ear as a consequence of seasonal allergies] *What to do: *Take medications as directed: You may consider either increasing your cetirizine to twice daily or you may take the Meclizine INSTEAD. It has been sent to [facility] *Follow up with your primary care provider in 2-3 days, call for an appointment. Let them know you were seen in the Emergency Department and that we ask that you be seen in follow up *Return to ER if you should have any new, worsening or concerning symptoms Prescriptions: New meclizine 25 mg tablet 25 mg PO TID PRN (Reason: dizziness) Qty: 10 RF: 0 No Action fluticasone propionate [Flonase Allergy Relief] 50 mcg/actuation spray,suspension 1 spray NASAL BID PRN (Reason: nasal congestion) Qty: 9.9 RF: 0 losartan 50 mg Tablet 50 mg PO DAILY RF: 0 cetirizine 10 mg tablet 10 mg PO DAILY RF: 0 simvastatin 10 mg tablet 10 mg PO DAILY RF: 0 pseudoephedrine HCl [Sudafed 12 Hour] 120 mg Tablet Extended Release 120 mg PO Q12H RF: 0 Referrals: Estefany Carroll MD [Primary Care Provider] -
[2019-09-06 02:30] LABS: Add Manual Diff / Slide Review NO; Basophils Absolute Auto 100 /uL (0-100); Basophils Percent Auto 0.9 % (0-2); Eosinophils Absolute Auto 200 /uL (0-450); Hematocrit 39.8 % (36-46); Hemoglobin 13.8 g/dL (12.0-16.0); Lymphocytes Absolute Auto 4600 /uL (1100-4500); Lymphocytes Percent Auto 39.2 % (25-40); Mean Corpuscular HGB Conc 34.8 % (30-36); Mean Corpuscular Hemoglobin 29.3 PG (26-34); Mean Corpuscular Volume 84.4 fL (80-100); Monocytes Absolute Auto 800 /uL (0-900); Monocytes Percent Auto 6.7 % (3-14); Neutrophils Absolute Auto 6000 /uL (1500-7000); Neutrophils Percent Auto 51.2 % (50-75); Platelet Count 361 X10^3/uL (150-400); Red Blood Cell Count 4.72 X10^6/uL (4.0-5.2); Red Cell Distribution Width 12.6 % (11.6-14.8); White Blood Cell Count 11.8 X10^3/uL (4.5-11.0)
[2019-09-06 02:39] LABS: Alanine Aminotransferase 17 IU/L (<35); Albumin Globulin Ratio 1.4 (1.0-2.8); Alkaline Phosphatase 111 U/L (38-126); Aspartate Aminotransferase 24 IU/L (14-36); BUN Creatinine Ratio 19.5 (6-22); Bilirubin Total 0.2 mg/dL (0.2-1.3); Blood Urea Nitrogen 16 mg/dL (7-17); Calcium 9.6 mg/dL (8.4-10.2); Carbon Dioxide 23 mmol/L (22-32); Chloride 104 mmol/L (98-107); Creatine Kinase 147 U/L (30-135); Estimated Glomerular Filt Rate > 60.0 mL/min (>60); Globulin 2.9 g/dL (1.7-4.1); Glucose 228 mg/dL (70-100); Potassium 4.3 mmol/L (3.4-5.1); Sodium 135 mmol/L (137-145); Total Protein 6.9 g/dL (6.3-8.2)
[2019-09-06 02:51] LABS: Troponin I < 0.012 ng/mL (0.01-0.034)
[2019-09-06 02:54] LABS: HEMOLYSIS 26 (0-50)
[2019-09-06 03:00] LABS: CKMB % Relative Index 1.3 % (1.5-5.0); Creatine Kinase MB 1.85 ng/mL (<2.37)
[2019-09-06 03:09] VITALS: BP 120/58; PULSE 81; RESP 18; O2SAT 98
== END 2019-09-06 03:16 | disposition home or self-care (01) ==
PROVIDERS: Emergency Provider Emergency Medicine; PCP Family Medicine
DX: R42 Dizziness and giddiness (principal); I10 Essential (primary) hypertension
CPT/HCPCS: 36415; 80053; 82550; 82553; 84484; 85025; 93005; 99283; 99284

== ENCOUNTER 2020-03-08 20:31 | Emergency (ER) | payer OTHER, SELFPAY ==
[2020-03-08 20:35] VITALS: BP 121/61; PULSE 102; RESP 15; TEMP 37; O2SAT 100; BMI 34.3
[2020-03-08 21:03] LABS: Appearance Urine UA CLOUDY; Bilirubin Urine UA NEGATIVE (NEGATIVE); Color Urine UA YELLOW; Glucose Urine UA 2+ g/dL (Negative); Ketones Urine UA NEGATIVE (NEGATIVE); Leukocyte Esterase Urine UA 2+ (NEGATIVE); Nitrite Urine UA POSITIVE (Negative); Occult Blood Urine UA 3+ (Negative); Protein Urine UA 1+ (Negative); Urobilinogen Urine UA 0.2 E.U./dL (0.2)
[2020-03-08 21:13] LABS: Bacteria Urine Many (>30); Culture Indicated Urine Specimen Cultured; RBC Urine 30-100/HPF (0-5/HPF); WBC Urine 30-100/HPF (0-5/HPF)
--- NOTE | 2020-03-08 21:16 | ED.GENADULT ---
HPI - General Adult General Chief complaint: Urogenital-Female Stated complaint: low back pain, thinks bladder infection Time Seen by Provider: 03/08/20 21:12 Source: patient Mode of arrival: Ambulatory Limitations: no limitations History of Present Illness HPI narrative: Patient is a 45-year-old male here for evaluation of dysuria to include frequency and also right-sided flank pain. She states that her symptoms started within the past 24 hours. She has had urinary tract infections in the past. Has not tried anything for her symptoms prior to arrival. Related Data Home Medications Medication Instructions Recorded Confirmed cetirizine 10 mg PO DAILY 09/06/19 09/06/19 losartan 50 mg PO DAILY 09/06/19 09/06/19 pseudoephedrine HCl [Sudafed 12 120 mg PO Q12H 09/06/19 09/06/19 Hour] simvastatin 10 mg PO DAILY 09/06/19 09/06/19 Previous Rx's Medication Instructions Recorded fluticasone propionate [Flonase 1 spray NASAL BID PRN #9.9 gram 12/19/17 Allergy Relief] meclizine 25 mg PO TID PRN #10 tab 09/06/19 phenazopyridine [Pyridium] 100 mg PO TID PRN #6 tab 03/08/20 sulfamethoxazole-trimethoprim 1 tab PO Q12H 14 Days #28 tab 03/08/20 [Bactrim DS] Allergies Allergy/AdvReac Type Severity Reaction Status Date / Time acetaminophen [From Vicodin] AdvReac Verified 08/24/18 09:24 amoxicillin [From Augmentin] AdvReac Verified 09/06/19 01:39 clavulanic acid AdvReac Verified 09/06/19 01:39 [From Augmentin] hydrocodone [From Vicodin] AdvReac Verified 08/24/18 09:24 Review of Systems Constitutional Constitutional: Denies fever(s) and Denies headache(s) ENT Ears, Nose, Mouth, and Throat: Denies headache(s) Cardiovascular Cardiovascular: Denies chest pain and Denies dyspnea Respiratory Respiratory: Denies dyspnea Gastrointestinal Gastrointestinal: Denies abdominal pain, Denies change in bowel habits, Denies nausea and Denies vomiting Genitourinary Genitourinary: Reports dysuria and Reports urinary hesitancy Genitourinary: Reports dysuria and Reports urinary hesitancy Comments: Right flank pain Musculoskeletal Musculoskeletal: Denies arthralgias and Denies myalgias Integumentary/Breasts Skin/Breast: Denies rash Neurologic Neurologic: Denies behavioral changes, Denies confusion and Denies headache(s) Psychiatric Psychiatric: Denies behavioral changes and Denies confusion Hematologic/Lymphatic Hematologic/Lymphatic: Denies easy bleeding and Denies easy bruising Patient History Medical History Diabetes mellitus type 2, diet-controlled Social History Smoking Status: Current every day smoker Smoking Status: Current every day smoker alcohol intake frequency: holidays/special occasions only Substance Use Type: does not use and marijuana Exam Initial Vital Signs Initial Vital Signs: Vital Signs Temperature 98.6 F 03/08/20 20:35 Pulse Rate 102 H 03/08/20 20:35 Respiratory Rate 15 03/08/20 20:35 Blood Pressure 121/61 03/08/20 20:35 Pulse Oximetry 100 03/08/20 20:35 Const General: cooperative and comfortable Limitations: mental status not altered HENMT Head: normal to inspection and normocephalic Resp Effort & Inspection: normal respiratory effort Auscultation: clear to auscultation bilaterally Cardio Rate: tachycardic Rhythm: regular rhythm Back/Spine/Pelvis Back: CVA tenderness right Skin Lesions: no lesions Rashes: no rashes Neuro General: patient alert, patient awake and patient oriented x3 Cognition: normal cognition Speech: speech normal Extrem General: normal to inspection and capillary refill normal Psych Appearance: grossly normal and well kempt Course Orders Ordered: ED Orders 03/08/20 20:59 Urinalysis and Microscopic Stat Urine Culture Stat Discontinued Medications Ondansetron HCl (Ondansetron 4 Mg Odt Prepack) 1 bottle MISC SEEINSTR ONE Stop: 03/08/20 21:18 Last Admin: 03/08/20 21:39 Dose: 1 bottle Documented by: FAIZA Phenazopyridine HCl (Phenazopyridine 100 Mg Tablet) 100 mg PO NOW ONE Stop: 03/08/20 21:18 Last Admin: 03/08/20 21:39 Dose: 100 mg Documented by: FAIZA Trimethoprim/Sulfamethoxazole (Trimeth/Sulfa 160/800 (Ds) Tablet) 1 tab PO NOW ONE Stop: 03/08/20 21:18 Last Admin: 03/08/20 21:39 Dose: 1 tab Documented by: FAIZA Vital Signs Vital signs: Vital Signs - 8 hr 03/08/20 20:35 03/08/20 21:44 Temperature 98.6 F Pulse Rate 102 H 85 Respiratory Rate 15 14 Blood Pressure 121/61 Pulse Oximetry 100 99 Medical Decision Making Lab Data Lab results reviewed: Yes I reviewed the patient's lab results. Labs: Lab Results 03/08/20 Range/Units 20:59 Urine Color Yellow Urine Appearance Cloudy Urine pH 6.0 (4.5-8.0) Ur Specific Rogers 1.020 (1.000-1.035) Urine Protein 1+ H (Negative) Urine Glucose (UA) 2+ H (Negative) g/dL Urine Ketones Negative (NEGATIVE) Urine Occult Blood 3+ H (Negative) Urine Nitrate Positive H (Negative) Urine Bilirubin Negative (NEGATIVE) Urine Urobilinogen 0.2 (0.2) E.U./dL Ur Leukocyte Esterase 2+ H (NEGATIVE) Urine RBC 30-100/hpf H (0-5/HPF) Urine WBC 30-100/hpf H (0-5/HPF) Urine Bacteria Many (>30) H (None) Ur Culture Indicated? Specimen cultured MDM Narrative Medical decision making narrative: Patient does have nitrite positive urine. She does have right-sided CVA tenderness and somewhat tachycardic upon arrival but no vomiting. No fevers. Given her right-sided flank tenderness there is some concern about pyelonephritis. Review of prior labs shows that a prior urine culture was positive for bacteria susceptible to Bactrim. She was given a 1st dose with peridium here in the emergency department. She tolerated without problems. Feel patient can attempt treating this urinary tract infection at home with oral antibiotics. I do not feel that she needs admitted to the hospital for IV antibiotics. Will treat her as pyelonephritis given her right flank pain. She was given return precautions and follow-up instructions. She expressed understanding and agreement. Discharge Plan Departure Patient Disposition: Home Clinical Impression: Urinary tract infection Instructions: DI for Urinary Tract Infection (UTI) Activity Restrictions/Additional Instructions: A prescription for antibiotics was electronically transmitted to [facility]. Take all the medications as directed. Return to the emergency department for any new or worsening symptoms. Prescriptions: New sulfamethoxazole-trimethoprim [Bactrim DS] 800-160 mg tablet 1 tab PO Q12H 14 Days Qty: 28 RF: 0 phenazopyridine [Pyridium] 100 mg tablet 100 mg PO TID PRN (Reason: pain) Qty: 6 RF: 0 No Action fluticasone propionate [Flonase Allergy Relief] 50 mcg/actuation spray,suspension 1 spray NASAL BID PRN (Reason: nasal congestion) Qty: 9.9 RF: 0 losartan 50 mg Tablet 50 mg PO DAILY RF: 0 cetirizine 10 mg tablet 10 mg PO DAILY RF: 0 simvastatin 10 mg tablet 10 mg PO DAILY RF: 0 pseudoephedrine HCl [Sudafed 12 Hour] 120 mg Tablet Extended Release 120 mg PO Q12H RF: 0 meclizine 25 mg tablet 25 mg PO TID PRN (Reason: dizziness) Qty: 10 RF: 0 Referrals: Estefany Carroll MD [Primary Care Provider] -
[2020-03-08] MEDS: PHENAZOPYRIDINE 100 MG TABLET PO (21:39)
[2020-03-08] MEDS: ONDANSETRON 4 MG ODT PREPACK 1 BOTTLE MISC (21:39)
[2020-03-08] MEDS: TRIMETH/SULFA 160/800 (DS) TABLET 1 TAB PO (21:39)
[2020-03-08 21:44] VITALS: PULSE 85; RESP 14; O2SAT 99
== END 2020-03-08 21:45 | disposition home or self-care (01) ==
PROVIDERS: Emergency Provider Emergency Medicine; PCP Family Medicine
DX: N39.0 Urinary tract infection, site not specified (principal)
CPT/HCPCS: 81001; 87077; 87086; 87186; 99281; 99283

== ENCOUNTER 2020-05-11 23:44 | Emergency (ER) | payer OTHER, SELFPAY ==
[2020-05-11 23:50] VITALS: BP 134/66; PULSE 98; RESP 22; TEMP 36.5; O2SAT 100
[2020-05-12 00:26] LABS: Hematocrit 38.5 % (36-46); Hemoglobin 13.3 g/dL (12.0-16.0); Mean Corpuscular HGB Conc 34.6 % (30-36); Mean Corpuscular Volume 83.9 fL (80-100); Platelet Count 351 X10^3/uL (150-400); Red Blood Cell Count 4.59 X10^6/uL (4.0-5.2); Red Cell Distribution Width 13.2 % (11.6-14.8); White Blood Cell Count 12.9 X10^3/uL (4.5-11.0)
[2020-05-12 00:26] LABS: INR 0.8 (0.9-1.3); Prothrombin Time 9.8 SECONDS (10.1-12.7)
[2020-05-12 00:29] LABS: PTT Partial Thromboplastin Tim 32 SECONDS (26.4-36.2)
[2020-05-12 00:29] LABS: Add Manual Diff / Slide Review YES
[2020-05-12 00:30] VITALS: PULSE 95; RESP 18; O2SAT 100
[2020-05-12 00:31] LABS: Alanine Aminotransferase 17 IU/L (<35); Albumin Globulin Ratio 1.2 (1.0-2.8); Alkaline Phosphatase 122 U/L (38-126); Aspartate Aminotransferase 24 IU/L (14-36); BUN Creatinine Ratio 22.9 (6-22); Bilirubin Total 0.6 mg/dL (0.2-1.3); Blood Urea Nitrogen 11 mg/dL (7-17); Calcium 8.5 mg/dL (8.4-10.2); Carbon Dioxide 22 mmol/L (22-32); Chloride 106 mmol/L (98-107); Estimated Glomerular Filt Rate > 60.0 mL/min (>60); Globulin 3.3 g/dL (1.7-4.1); Glucose 303 mg/dL (70-100); HEMOLYSIS 72 (0-50); Lipase 224 U/L (23-300); Sodium 135 mmol/L (137-145); Total Protein 7.3 g/dL (6.3-8.2)
[2020-05-12 00:33] LABS: Potassium 4.3 mmol/L (3.4-5.1)
--- NOTE | 2020-05-12 00:55 | ED.ABDPAIN ---
HPI - Abdominal Pain General Chief Complaint: Abdominal Pain Stated Complaint: Stomach pain Time Seen by Provider: 05/12/20 00:00 Source: patient Mode of arrival: Ambulatory History of Present Illness HPI narrative: With history of diabetes, hypertension and hyperlipidemia presents complaining of abdominal pain and bloating. She had a stressful weekend in [place] with some family social issues and found that she had 3 days of relatively heavy drinking (6 beers a day). Since then she has been noticing increasing epigastric pain. She was treated for H pylori after an endoscopy a number of years ago and her epigastric/reflux symptoms had resolved after that. She is not currently on proton pump inhibitor. She has noted no black stools, dyspnea, cough, fevers, edema, vomiting, palpitations or near syncope Related Data Home Medications Medication Instructions Recorded Confirmed cetirizine 10 mg PO DAILY 09/06/19 09/06/19 losartan 50 mg PO DAILY 09/06/19 09/06/19 pseudoephedrine HCl [Sudafed 12 120 mg PO Q12H 09/06/19 09/06/19 Hour] simvastatin 10 mg PO DAILY 09/06/19 09/06/19 Previous Rx's Medication Instructions Recorded fluticasone propionate [Flonase 1 spray NASAL BID PRN #9.9 gram 12/19/17 Allergy Relief] meclizine 25 mg PO TID PRN #10 tab 09/06/19 phenazopyridine [Pyridium] 100 mg PO TID PRN #6 tab 03/08/20 omeprazole 20 mg PO DAILY #30 cap 05/12/20 Allergies Allergy/AdvReac Type Severity Reaction Status Date / Time acetaminophen [From Vicodin] AdvReac Verified 08/24/18 09:24 amoxicillin [From Augmentin] AdvReac Verified 09/06/19 01:39 clavulanic acid AdvReac Verified 09/06/19 01:39 [From Augmentin] hydrocodone [From Vicodin] AdvReac Verified 08/24/18 09:24 Review of Systems Review of Systems ROS Unobtainable: All systems reviewed & are unremarkable except as noted in HPI and below Patient History Medical History Diabetes mellitus type 2, diet-controlled History of Helicobacter pylori infection Hyperlipidemia Hypertension Social History Smoking Status: Current every day smoker Smoking Status: Current every day smoker alcohol intake frequency: holidays/special occasions only Substance Use Type: does not use Exam Narrative Exam Narrative: General: Healthy appearing, in no acute distress. Able to give a complete and coherent history. Well-nourished well-developed HEENT: Moist mucous membranes, normal sclera with reactive pupils, Neck: No JVD, supple Respiratory: Lungs are clear to auscultation, no wheezing no rales no rhonchi. Full and symmetrical air movement Cardiac: Regular rate and rhythm no murmurs no bruits Abdomen: Soft, mild epigastric tenderness with minimal tenderness in the right and left upper quadrants. No lower abdominal tenderness. No rebound or guarding., good bowel tones, no flank pain Skin: Warm and dry, no rashes Neurologic: Grossly neurologically intact with no obvious asymmetries or abnormalities Extremities: No trauma, well perfused Psych: Cooperative, appropriate insight and affect Initial Vital Signs Initial Vital Signs: Vital Signs Temperature 97.7 F 05/11/20 23:50 Pulse Rate 98 H 05/11/20 23:50 Respiratory Rate 22 05/11/20 23:50 Blood Pressure 134/66 05/11/20 23:50 Pulse Oximetry 100 05/11/20 23:50 Course Orders Ordered: ED Orders 05/11/20 23:53 Complete Blood Count AUTO DIFF Stat Comprehensive Metabolic Panel Stat Lipase Stat Partial Thromboplastin Time Stat Prothrombin Time INR Stat EKG-12 Lead Stat 05/12/20 01:05 Urine Microscopic Stat Discontinued Medications Pantoprazole Sodium (Pantoprazole 40 Mg Vial) 40 mg IV NOW ONE Stop: 05/12/20 01:08 Last Admin: 05/12/20 01:15 Dose: 40 mg Documented by: Vital Signs Vital signs: Vital Signs - 8 hr 05/11/20 23:50 05/12/20 00:30 Temperature 97.7 F Pulse Rate 98 H 95 H Respiratory Rate 22 18 Blood Pressure 134/66 Pulse Oximetry 100 100 MDM - Abdominal Pain Medical Records Attestation: I reviewed the patient's medical records. Lab Data Attestation: I reviewed the patient's lab results. Result diagrams: 05/12/20 00:16 05/12/20 00:15 Labs: Lab Results 05/12/20 05/12/2021 Range/Units 00:15 00:15 00:16 WBC 12.9 H (4.5-11.0) X10^3/uL RBC 4.59 (4.0-5.2) X10^6/uL Hgb 13.3 (12.0-16.0) g/dL Hct 38.5 (36-46) % MCV 83.9 (80-100) fL MCH 29.0 (26-34) PG MCHC 34.6 (30-36) % RDW 13.2 (11.6-14.8) % Plt Count 351 (150-400) X10^3/uL Neut % (Auto) Not Reportable Lymph % (Auto) Not Reportable [place] % (Auto) Not Reportable Eos % (Auto) Not Reportable Baso % (Auto) Not Reportable Lymph # (Auto) Not Reportable [place] # (Auto) Not Reportable Baso # (Auto) Not Reportable PT 9.8 L (10.1-12.7) SECONDS INR 0.8 L (0.9-1.3) APTT 32 (26.4-36.2) SECONDS Sodium 135 L (137-145) mmol/L Potassium 4.3 (3.4-5.1) mmol/L Chloride 106 (98-107) mmol/L Carbon Dioxide 22 (22-32) mmol/L BUN 11 (7-17) mg/dL Creatinine 0.48 L (0.52-1.04) mg/dL Estimated GFR > 60.0 (>60) mL/min BUN/Creatinine Ratio 22.9 H (6-22) Glucose 303 H (70-100) mg/dL Calcium 8.5 (8.4-10.2) mg/dL Total Bilirubin 0.6 (0.2-1.3) mg/dL AST 24 (14-36) IU/L ALT 17 (<35) IU/L Alkaline Phosphatase 122 (38-126) U/L Total Protein 7.3 (6.3-8.2) g/dL Albumin 4.0 (3.5-5.0) g/dL Globulin 3.3 (1.7-4.1) g/dL Albumin/Globulin Ratio 1.2 (1.0-2.8) Lipase 224 (23-300) U/L Urine RBC (0-5/HPF) Urine WBC (0-5/HPF) Ur Squamous Epith Cells (0-5/HPF) Urine Bacteria (None) Ur Culture Indicated? 05/12/20 Range/Units 01:05 WBC (4.5-11.0) X10^3/uL RBC (4.0-5.2) X10^6/uL Hgb (12.0-16.0) g/dL Hct (36-46) % MCV (80-100) fL MCH (26-34) PG MCHC (30-36) % RDW (11.6-14.8) % Plt Count (150-400) X10^3/uL Neut % (Auto) Lymph % (Auto) [place] % (Auto) Eos % (Auto) Baso % (Auto) Lymph # (Auto) [place] # (Auto) Baso # (Auto) PT (10.1-12.7) SECONDS INR (0.9-1.3) APTT (26.4-36.2) SECONDS Sodium (137-145) mmol/L Potassium (3.4-5.1) mmol/L Chloride (98-107) mmol/L Carbon Dioxide (22-32) mmol/L BUN (7-17) mg/dL Creatinine (0.52-1.04) mg/dL Estimated GFR (>60) mL/min BUN/Creatinine Ratio (6-22) Glucose (70-100) mg/dL Calcium (8.4-10.2) mg/dL Total Bilirubin (0.2-1.3) mg/dL AST (14-36) IU/L ALT (<35) IU/L Alkaline Phosphatase (38-126) U/L Total Protein (6.3-8.2) g/dL Albumin (3.5-5.0) g/dL Globulin (1.7-4.1) g/dL Albumin/Globulin Ratio (1.0-2.8) Lipase (23-300) U/L Urine RBC 0-1/hpf D (0-5/HPF) Urine WBC 0-1/hpf (0-5/HPF) Ur Squamous Epith Cells 0-1 /hpf (0-5/HPF) Urine Bacteria None seen (None) Ur Culture Indicated? Cult not indicated Point of care testing: Point of Care Testing Test Results Negative Urine Dip Bedside Urine Glucose 1000 mg/dl Bedside Urine Bilirubin - Negative Bedside Urine Ketone - Negative Urine Specific [place] 1.020 Bedside Urine Occult Blood +++ Bedside Urine pH 6.0 Bedside Urine Protein - Negative Bedside Urine Urobilinogen - Negative Bedside Urine Nitrite - Negative Bedside Urine Leukocytes - Negative Esterase ECG Data Attestation: I personally reviewed and interpreted this ECG as follows: Interpretation: Sinus rhythm at a rate of 95 Normal intervals, normal axis No acute ischemic changes MDM Narrative Medical decision making narrative: 45-year-old woman presents with epigastric pain and bloating. She notes that she had a stressful week in in 3 days of heavy drinking which has not happened for an extended period of time. Labs are reassuring with no evidence of acute infection, acute liver abnormalities, renal failure, pancreatitis, acute coronary syndrome. Exam is benign without findings suggesting acute abdomen. At this point most likely diagnosis is alcoholic gastritis. Will treat with omeprazole for a month if symptoms worsen in any further evaluation. She is safe for home discharge Discharge Plan Departure Patient Disposition: Home Clinical Impression: Gastritis Qualifiers: Gastritis type: alcoholic Chronicity: acute Gastritis bleeding: without bleeding Qualified Code(s): K29.20 - Alcoholic gastritis without bleeding Instructions: DI for Alcoholic Gastritis Activity Restrictions/Additional Instructions: Thank you for coming in today Your workup was very reassuring. There is no evidence of active bleeding, acute gallbladder disease or pancreatitis. No heart attacks pneumonia or bowel obstruction. I suspect that your weekend with a bit of excessive drinking has irritated the lining of your stomach and that is with causing her symptoms. I am going to suggest that you take omeprazole for the following month and make sure that you avoid alcohol during that same time frame. Prescription was electronically transmitted to [facility] If you find that you are getting worse, please return to the emergency department Prescriptions: New omeprazole 20 mg capsule,delayed release(DR/EC) 20 mg PO DAILY Qty: 30 RF: 0 No Action fluticasone propionate [Flonase Allergy Relief] 50 mcg/actuation spray,suspension 1 spray NASAL BID PRN (Reason: nasal congestion) Qty: 9.9 RF: 0 losartan 50 mg Tablet 50 mg PO DAILY RF: 0 cetirizine 10 mg tablet 10 mg PO DAILY RF: 0 simvastatin 10 mg tablet 10 mg PO DAILY RF: 0 pseudoephedrine HCl [Sudafed 12 Hour] 120 mg Tablet Extended Release 120 mg PO Q12H RF: 0 meclizine 25 mg tablet 25 mg PO TID PRN (Reason: dizziness) Qty: 10 RF: 0 phenazopyridine [Pyridium] 100 mg tablet 100 mg PO TID PRN (Reason: pain) Qty: 6 RF: 0 Referrals: Estefany Carroll MD [Primary Care Provider] -
[2020-05-12] MEDS: PANTOPRAZOLE 40 MG VIAL IV (01:15)
[2020-05-12 01:16] LABS: Bacteria Urine None Seen
[2020-05-12 01:30] LABS: Culture Indicated Urine Cult Not Indicated; RBC Urine 0-1/HPF (0-5/HPF); Squamous Epithelial Cell Urine 0-1 /HPF (0-5/HPF); WBC Urine 0-1/HPF (0-5/HPF)
[2020-05-12 01:49] VITALS: BP 134/66; PULSE 92; RESP 16; TEMP 36.8; O2SAT 100
[2020-05-12 02:24] LABS: Neutrophils Absolute Manual 9030 /uL (3000-5900); Total Cells Counted 100
[2020-05-12 02:25] LABS: RBC Morphology Normal Morphology
== END 2020-05-12 01:50 | disposition home or self-care (01) ==
PROVIDERS: Emergency Provider Emergency Medicine; PCP Family Medicine
DX: K29.20 Alcoholic gastritis without bleeding (principal)
CPT/HCPCS: 36415; 80053; 81003; 81015; 81025; 83690; 85007; 85025; 85610; 85730; 96374; 99283; 99284; C9113

== ENCOUNTER → 2022-06-05 11:30 | Outpatient (CLI) | payer OTHER, SELFPAY | PROVIDERS: PCP Family Medicine; Visit Provider Nurse Practitioner Family | DX: R30.0 Dysuria (principal) | CPT/HCPCS: 87077; 87086; 87186 ==